=== PATIENT | male | born 1945 | race Hispanic/Latino ===

== ENCOUNTER → 2023-04-19 | Outpatient (CLI) | payer OTHER ==
[~2023-04-19] MED LIST: IOHEXOL 350 MG/ML 100ML INFUS..BTL IV ONE
== END | disposition home or self-care (01) ==
LOC: SHCH 12:18
PROVIDERS: ATTEND Internal Medicine Cardiovascular Disease
DX: I87.2 Venous insufficiency (chronic) (peripheral) (principal); Z98.890 Other specified postprocedural states
CPT/HCPCS: 93971

== ENCOUNTER 2024-04-10 05:45 | Day surgery (SDC) | payer OTHER ==
[2024-04-06 12:22] LABS: BASOPHILS # (AUTO) 0.05 K/uL (0.00-0.20); BASOPHILS % (AUTO) 0.8 % (0.0-5.0); EOSINOPHILS # (AUTO) 0.14 K/uL (0.00-0.70); EOSINOPHILS % (AUTO) 2.2 % (0.0-8.0); HEMATOCRIT 49.6 % (42-54); IMMATURE GRANULOCYTE ABSOLUTE 0.06 K/uL (0-1); LYMPHOCYTES % (AUTO) 30.7 % (21.0-51.0); MEAN CORPUSCULAR HGB CONC 32.7 g/dL (32.0-36.0); MEAN CORPUSCULAR VOLUME 85.7 fL (79-99); MONOCYTES # (AUTO) 0.6 K/uL (0.1-1.0); MONOCYTES % (AUTO) 9.6 % (3.0-13.0); NEUTROPHILS # (AUTO) 3.6 K/uL (1.8-7.7); NEUTROPHILS % (AUTO) 55.8 % (40.0-77.0); PLATELET COUNT (AUTO) 143 K/uL (130-400); RED BLOOD CELL COUNT(AUTO) 5.79 MIL/uL (4.50-6.20); RED CELL DISTRIBUTION WIDTH 17.5 % (11.0-15.5); WHITE BLOOD COUNT (AUTO) 6.5 K/uL (4.8-10.8)
[2024-04-06 12:28] LABS: CREATININE 0.7 mg/dL (0.5-1.3); POTASSIUM 4.3 mmol/L (3.5-5.1)
[2024-04-06 12:30] LABS: INR 1.08 (0.85-1.15)
[2024-04-06 13:02] VITALS: BP 139/80; PULSE 85; RESP 18; TEMP 97.3
[2024-04-10] VITALS (10 sets, daily range): BP systolic 109–158; BP diastolic 63–91; PULSE 69–80; RESP 14–21; TEMP 97.2–97.4
[~2024-04-10] VITALS: Ht 182.9 cm; Wt 117.3 kg
[~2024-04-10 05:45] MED LIST changes: +APIX5TAB PO; +ATOR40TA71 PO; +CLON0.1T2 PO; +DILT-36 PO; +DOCU-280 PO; +DULA1.5P SQ; +EMPA25TA PO; +FINA5TAB41 PO; -IOHEXOL 350 MG/ML 100ML INFUS..BTL IV ONE; +LISI10TA24 PO; +LORA10TA7 PO; +METO100T14 PO; +TAMS-1 PO; +ZOLP10TA2 PO; +toujeo SQ
--- NOTE | 2024-04-10 06:49 | EKG ---
[facility] Test Date: 2024-04-10 Test Time: 07:20:33 Pat Name: ALYSSA BEY Department: [facility] Room: [facility] 03 Gender: M Engagement Liaison: [id number] : 1945 Requested By: ALYSSA COLLADO Order Number: [id number] Reading MD: Clark Bautista Measurements Intervals [place] Rate: 57 P: 0 [place]: 0 QRS: -78 QRSD: 120 T: -43 QT: 410 QTc: 426 Interpretive Statements Atrial fibrillation Nonspecific IVCD with LAD Inferior infarct, age indeterminate No previous ECG available for comparison Electronically Signed On 04-10-2024 16:41:26 INDUSTRIAL EDUCATION TEACHER by Clark Bautista Please click the below link to view image of tracing.
--- NOTE | 2024-04-10 09:20 | NUR ---
PT SYNCHRONIZED CARDIOVERTED [address] COLLADO. PT TOLERATED WELL NAD VSS
--- NOTE | 2024-04-10 09:25 | NUR ---
PT AWAKE SPEAKING WITH STAFF AND FAMILY AT BEDSIDE VSS NAD.
--- NOTE | 2024-04-10 09:45 | EKG ---
[facility] Test Date: 2024-04-10 Test Time: 10:17:16 Pat Name: ALYSSA BEY Department: [facility] Room: [facility] 03 Gender: M Speech Writer: [id number] : 1945 Requested By: ALYSSA COLLADO Order Number: [id number] Reading MD: Clark Bautista Measurements Intervals [place] Rate: 80 P: 33 [place]: 206 QRS: -64 QRSD: 127 T: -7 QT: 407 QTc: 469 Interpretive Statements Sinus rhythm Nonspecific IVCD with LAD Poor R wave progression Electronically Signed On 04-10-2024 16:42:14 FAMILY COUNSELOR by Clark Bautista Please click the below link to view image of tracing.
[2024-04-10] MEDS: 0.9%NACL 1000ML 1,000 ML IV SCH (10:17)
[2024-04-10] MEDS: FENTanyl CITRate PF 50 MCG/1 ML 2ML VIAL IVP ONE (10:17)
[2024-04-10] MEDS: MIDAZOLAM HCL 1 MG/ML 2ML VIAL IVP ONE (10:19)
--- NOTE | 2024-04-10 12:01 | PRN ---
Procedure Note INDICATION FOR PROCEDURE: [] Hypercoagulable state Paroxysmal atrial fibrillation symptomatic PROCEDURE: [] Conscious sedation Direct current cardioversion synchronized x1 at 150 joules DATE OF PROCEDURE: April 10, 2024 EAR PULL MACHINE OPERATOR: Brian Hooper MD LOCATED WITHIN [facility] PROCEDURE NOTE: [] Patient was not a patient who was noted to be in AFib which was a new finding for patient but when it had in the past and he was set up for direct current cardioversion after four weeks of anticoagulation. Repeat EKG done today revealed AFib to persist. Confirmation of continued anticoagulation uninterrupted was obtained from patient and family members. Patient was sedated with a total of 4 mg of Versed and 100 mcg of fentanyl. Direct current cardioversion took placed with synchronized electricity at 150 joules biphasic x1 with return of a sinus rhythm confirmed on EKG. FINDINGS: [] Successful direct current cardioversion x1 at 150 joules synchronized PLAN: [] Continue Eliquis 5 mg twice daily for four more weeks. Call with any issues or problems related to palpitations out and/or concerns for recurrent AFib. Continue other home medications. Follow up 2-4 weeks or at the end of the month in the [place] office BRIAN HOOPER MD Apr 10, 2024 12:01
--- NOTE | 2024-04-13 14:45 | NUR ---
PROCEDURE START TIME 909
--- NOTE | 2024-04-13 14:46 | NUR ---
PROCEDURE STOP TIME 9834
== END 2024-04-10 10:35 | disposition home or self-care (01) ==
LOC: DAH 05:45
PROVIDERS: ATTEND Internal Medicine Cardiovascular Disease
DX: I48.0 Paroxysmal atrial fibrillation (principal); I25.118 Atherosclerotic heart disease of native coronary artery with other forms of angina pectoris; I11.9 Hypertensive heart disease without heart failure; I73.9 Peripheral vascular disease, unspecified; E66.9 Obesity, unspecified; E78.5 Hyperlipidemia, unspecified; I87.2 Venous insufficiency (chronic) (peripheral); E11.59 Type 2 diabetes mellitus with other circulatory complications; Z79.899 Other long term (current) drug therapy; Z68.34 Body mass index [BMI] 34.0-34.9, adult; Z90.89 Acquired absence of other organs; Z98.890 Other specified postprocedural states; Z90.49 Acquired absence of other specified parts of digestive tract; Z83.3 Family history of diabetes mellitus; Z82.49 Family history of ischemic heart disease and other diseases of the circulatory system; Z79.4 Long term (current) use of insulin; Z79.82 Long term (current) use of aspirin; Z79.01 Long term (current) use of anticoagulants
CPT/HCPCS: 80048; 85025; 85610; 85730; 36415; 92960; 82948; 93005 ×2; J3010; J7030; J2250; A4615; A4215; A4657; A4222; A4221; A4663; A4216; A4606; A4223 ×3; 99152; G0500